=== PATIENT | male | born 1940 | race Caucasian/White ===

== ENCOUNTER → 2019-01-18 | Outpatient (CLI) | payer OTHER ==
[~2019-01-18] VITALS: Ht 175.3 cm; Wt 81.6 kg
[~2019-01-18] MED LIST: AMARYL4 MG PO; ASPIR-LOW81 MG PO; ENALAPRIL MALEAT5 M1 PO; FISH OIL 1,0001 EAC9 PO; FLOMAX0.4 MG PO; GLUCOPHAGE XR500 MG PO; METOPROLOL TART25 MG PO; PROBIOTIC1 EAC7 PO
--- NOTE | ~2019-01-18 | P ---
[facility] [place] [address] PROCEDURE REPORT Name: GILBERTAGA Denisse PARADA Room #: REG [facility]#: [id number] Admission: 01/18/19 Attend Phys: Rakesh Ramirez MD Discharge: Date of : 40 Report #: [id number] THIS REPORT FOR: //name// CC: Rakesh Ramirez DATE OF SERVICE: 01/18/2019 BRIEF HISTORY: The patient is a 78-year-old male with a history of multiple colon polyps. His last colonoscopy was 3 years ago. At that time, 7 adenomas were removed. There is also a family history of colon cancer in his father. He was in his 60s and 70s and also maternal aunt, she was in her 60s and 70s as well. PREOPERATIVE DIAGNOSIS: High risk screening colonoscopy. POSTOPERATIVE DIAGNOSES: 1. Colon polyps x 3 cecum. 2. Moderate diverticulosis coli, primarily sigmoid colon, a few scattered diverticula in proximal colon. SPECIMEN: Cecal polyps x 3. ESTIMATED BLOOD LOSS: 3 mL. PROCEDURE: Colonoscopy to cecum and terminal ileum with snare polypectomy. FINDINGS: Prior to propofol sedation, procedure of colonoscopy discussed with the patient as well as potential risks and its complications. He indicates he understands and desires to proceed. DESCRIPTION OF PROCEDURE: With the patient in left lateral decubitus position, digital examination was completed, which revealed no abnormalities. Subsequently, the Olympus video colonoscope was introduced in the rectum, advanced under direct vision to the cecum. Done with minimal difficulty. Cecum was identified by the ileocecal valve and the appendiceal orifice. I was able to visualize the distal segment of terminal ileum, which was inspected and noted to be unremarkable. At that point, the scope was slowly withdrawn and careful circumferential views obtained. Upon slow withdrawal of the scope, the prep was good. The mucosa was within normal limits, normal vascular pattern, normal light reflex. As we withdrew the scope, he was found to have three 4-5 mm polyps in the cecum, which were removed by cold snare polypectomy. Scope was further drawn and no additional polyps were seen. The mucosa throughout the remainder of the colon was normal. A few scattered diverticula seen in the proximal colon, but there was no endoscopic evidence of diverticulitis. In the [address] [address] PROCEDURE REPORT Name: VLADIMIRAGA Denisse Room #: REG [facility]#: [id number] Admission: 01/18/19 Attend Phys: Rakesh Ramirez MD Discharge: Date of : 40 Report #: [id number] sigmoid colon, there was noted to be moderate diverticular disease without endoscopic evidence of diverticulitis. Scope was withdrawn in the rectum and no abnormalities were seen. Upon retroflexion, no abnormalities were seen. Scope was withdrawn. The patient tolerated the procedure well. CONDITION OF THE PATIENT UPON DISCHARGE: Following procedure, the patient drowsy, aroused, conversant and will be discharged home when fully ambulatory. INSTRUCTIONS TO THE PATIENT AND FAMILY AT THE TIME OF DISCHARGE: Three polyps identified and removed as described above. We will follow up on the path. If all 3 are adenomas, return in 3 years; otherwise return for followup colonoscopy in 5 years. Last colonoscopy was 3 years ago. Withdrawal time from the cecum was 13 minutes 37 seconds. By: [id number] Rakesh Ramirez MD /nt
--- NOTE | 2019-01-20 17:06 | PATH ---
[facility] [place] [address] PATHOLOGY RPT PROCEDURE Name: GILBERTJUSTIN Denisse Room #: REG [facility].#: [id number] Admission: 01/18/19 Date of : 40 Discharge: Report #: [id number] Path Case #: [id number] [facility] Accession Number: [id number] . 01 Material submitted: . cecum - POLYP X3 AT CECUM . 01 Clinical history: . Pre-op diagnosis: History of polyps, family history of colon cancer Post-op diagnosis: Colon polyps . 02 Diagnosis: Polyp x 3, endoscopic biopsy: - Tubular adenoma. - Negative for high grade dysplasia. (IUV/db; 01/20/2019) LBQ 01/20/2019 1353 Local . 02 Electronically signed: . Marisol Douglass MD, Pathologist NPI- [id number] . 01 Gross description: . The specimen is received in formalin, labeled "Justin Gilbert Jr., polypx3 at cecum". Received are seven segments of pale valentine soft tissue ranging in size from 0.3 to 0.9 cm in maximum dimensions. The specimen is submitted entirely in cassette A1. (CAA; 01/19/2019) QAC/QA 01/19/2019 1120 Local . 02 Pathologist provided ICD-10: D12.0 . 02 CPT . 714394 Specimen Comment: A courtesy copy of this report has been sent to [phone], [phone] Specimen Comment: [id number] Specimen Comment: Report sent to / DR SAMANIEGO Performed at: [address], [place] [id number] MD Shilo Alarcon MD Phone: [phone] Performed at: [address] [id number] MD Marisol Douglass MD Phone: [phone]
== END | disposition home or self-care (01) ==
LOC: GI 09:19
DX: Z12.11 Encounter for screening for malignant neoplasm of colon (principal); Z86.010 Personal history of colon polyps; Z80.0 Family history of malignant neoplasm of digestive organs; D12.0 Benign neoplasm of cecum; K57.30 Diverticulosis of large intestine without perforation or abscess without bleeding; I10 Essential (primary) hypertension; E11.9 Type 2 diabetes mellitus without complications; Z98.890 Other specified postprocedural states; Z79.899 Other long term (current) drug therapy; Z90.81 Acquired absence of spleen; Z87.442 Personal history of urinary calculi; Z85.72 Personal history of non-Hodgkin lymphomas; Z79.82 Long term (current) use of aspirin
CPT/HCPCS: 62110; 62900